=== PATIENT | female | born 1965 | race Hispanic/Latino ===

== ENCOUNTER 2021-02-25 19:30 | Inpatient (IN) | payer OTHER ==
[~2021-02-25] VITALS: Ht 157.5 cm; Wt 70.3 kg
[2021-02-25] MEDS ORDERED: IBUPROFEN 600 MG TAB PO STA (20:08)
[2021-02-25] MEDS ORDERED: DEXAMETHASONE SOD PHOS INJ 4 MG/ML SDV IV ONE (20:30)
[2021-02-25] MEDS ORDERED: SODIUM CHLORIDE 0.9% 1000ML 1,000 ML IV SCH (20:30)
[2021-02-25] MEDS ORDERED: DEXAMETHASONE SOD PHOS INJ 4 MG/ML SDV ONE (20:34)
[2021-02-25] MEDS ORDERED: SODIUM CHLORIDE 0.9% 50ML 50 ML ONE (20:34)
[2021-02-25] MEDS ORDERED: SODIUM CHLORIDE 0.9% 250ML 250 ML ONE (20:34)
[2021-02-25] MEDS: CEFTRIAXONE 1 GM in SODIUM CHLORIDE 0.9% 50ML 50 ML IV SCH (20:34)
[2021-02-25] MEDS ORDERED: SODIUM CHLORIDE 0.9% 1000ML 1,000 ML ONE (20:34)
[2021-02-25] MEDS ORDERED: CEFTRIAXONE 1 GM VIAL ONE (20:35)
[2021-02-25 20:50] LABS: BASOPHILS % 0.2 % (0.0-1.0); HEMATOCRIT 44.6 % (34.2-44.1); HEMOGLOBIN 15.3 g/dL (12.0-16.0); LYMPHOCYTES # (AUTO) 1.3 (1.0-3.2); LYMPHOCYTES % 20.4 % (18.0-39.1); MEAN CORPUSCULAR HEMOGLOBIN 31.8 pg (28-32); MEAN CORPUSCULAR HGB CONC 34.3 g/dL (31-35); MEAN CORPUSCULAR VOLUME 92.7 fL (81-99); MONOCYTES # (AUTO) 0.4 (0.2-0.8); MONOCYTES % 6.2 % (4.4-11.3); NEUTROPHILS # (AUTO) 4.7 (2.1-6.9); NEUTROPHILS % 72.6 % (38.7-80.0); PLATELET COUNT 192 x10e3/uL (140-360); RED BLOOD COUNT 4.81 x10e6/uL (3.6-5.1); RED CELL DISTRIBUTION WIDTH 13.2 % (11.7-14.4)
[2021-02-25 21:04] LABS: ANION GAP 15.6 mmol/L (8-16); CALCIUM 8.7 mg/dL (8.4-10.2); CREATININE, SERUM 0.73 mg/dL (0.57-1.11); POTASSIUM 3.6 mmol/L (3.5-5.1)
[2021-02-25 21:10] LABS: CREATINE KINASE MB 0.8 ng/mL (0-5.0)
[2021-02-25 21:23] LABS: ALBUMIN 3.3 g/dL (3.5-5.0); BILIRUBIN,DIRECT 0.5 mg/dL (0.0-0.5)
[2021-02-25] MEDS ORDERED: ACETAMINOPHEN 325 MG TAB PO PRN (22:00)
[2021-02-25] MEDS: SODIUM CHLORIDE 0.9% 1000ML 1,000 ML IV SCH (23:45)
[2021-02-26] VITALS (8 sets, daily range): BP systolic 94–112; BP diastolic 70–80
[2021-02-26] MEDS ORDERED: LEVOTHYROXINE50 MCG PO (00:01)
[2021-02-26] MEDS: LEVOTHYROXINE SODIUM 50 MCG TAB PO SCH (05:55)
[2021-02-26 07:19] LABS: BASOPHILS % 0.3 % (0.0-1.0); HEMATOCRIT 39.3 % (34.2-44.1); HEMOGLOBIN 13.4 g/dL (12.0-16.0); LYMPHOCYTES # (AUTO) 0.9 (1.0-3.2); LYMPHOCYTES % 22.4 % (18.0-39.1); MEAN CORPUSCULAR HGB CONC 34.1 g/dL (31-35); MEAN CORPUSCULAR VOLUME 93.8 fL (81-99); MONOCYTES # (AUTO) 0.2 (0.2-0.8); MONOCYTES % 4.6 % (4.4-11.3); NEUTROPHILS # (AUTO) 2.8 (2.1-6.9); NEUTROPHILS % 71.4 % (38.7-80.0); PLATELET COUNT 189 x10e3/uL (140-360); RED BLOOD COUNT 4.19 x10e6/uL (3.6-5.1); RED CELL DISTRIBUTION WIDTH 13.3 % (11.7-14.4)
[2021-02-26 07:42] LABS: CALCIUM 8.3 mg/dL (8.4-10.2); CREATININE, SERUM 0.7 mg/dL (0.57-1.11)
[2021-02-26 08:12] LABS: CREATINE KINASE MB 0.6 ng/mL (0-5.0)
[2021-02-26] MEDS: CEFTRIAXONE 1 GM in SODIUM CHLORIDE 0.9% 50ML 50 ML IV SCH (08:29)
[2021-02-26] MEDS: DEXAMETHASONE SOD PHOS INJ 4 MG/ML SDV IV SCH (08:29)
[2021-02-26 08:44] LABS: BAND NEUTROPHILS % (MANUAL) 1 %; LYMPHOCYTES % (MANUAL) 15 % (19-48); MONOCYTES % (MANUAL) 6 % (3.4-9.0); MYELOCYTES % (MANUAL) 1 % (0-0); NEUTROPHILS % (MANUAL) 77 % (40-74); PLATELET ESTIMATE ADEQUATE
[2021-02-26 08:45] LABS: PLATELET MORPHOLOGY COMMENT NORMAL; RBC MORPHOLOGY COMMENT NORMAL
[2021-02-26] MEDS ORDERED: REMDESIVIR 200MG 200 MG in SODIUM CHLORIDE 0.9% 100 ML IV ONE (11:00)
[2021-02-26] MEDS: ASCORBIC ACID 500 MG TAB PO SCH ×2 (12:21→16:29)
[2021-02-26] MEDS: ZINC SULFATE 50 MG CAP PO SCH (12:21)
[2021-02-26] MEDS: ENOXAPARIN 30 MG/0.3 ML SYR SC SCH ×2 (12:21→16:29)
[2021-02-26] MEDS: SODIUM CHLORIDE 0.9% 1000ML 1,000 ML IV SCH (12:21)
[2021-02-26 16:56] LABS: CREATINE KINASE MB 0.8 ng/mL (0-5.0)
[2021-02-27] MEDS: SODIUM CHLORIDE 0.9% 1000ML 1,000 ML IV SCH ×2 (00:15→13:12)
[2021-02-27 01:01] VITALS: BP 103/70
[2021-02-27] MEDS: LEVOTHYROXINE SODIUM 50 MCG TAB PO SCH (06:00)
[2021-02-27 06:04] VITALS: BP 94/63
[2021-02-27 06:24] LABS: BASOPHILS % 0.1 % (0.0-1.0); HEMATOCRIT 37.5 % (34.2-44.1); HEMOGLOBIN 12.9 g/dL (12.0-16.0); LYMPHOCYTES # (AUTO) 1.3 (1.0-3.2); LYMPHOCYTES % 14.5 % (18.0-39.1); MEAN CORPUSCULAR HEMOGLOBIN 31.9 pg (28-32); MEAN CORPUSCULAR HGB CONC 34.4 g/dL (31-35); MEAN CORPUSCULAR VOLUME 92.6 fL (81-99); MONOCYTES # (AUTO) 0.6 (0.2-0.8); MONOCYTES % 6.8 % (4.4-11.3); NEUTROPHILS # (AUTO) 6.9 (2.1-6.9); NEUTROPHILS % 77.1 % (38.7-80.0); PLATELET COUNT 222 x10e3/uL (140-360); RED BLOOD COUNT 4.05 x10e6/uL (3.6-5.1)
[2021-02-27 06:43] LABS: ALBUMIN 2.8 g/dL (3.5-5.0); ALBUMIN/GLOBULIN RATIO 0.9 (0.8-2.0); ANION GAP 11.3 mmol/L (8-16); CALCIUM 7.7 mg/dL (8.4-10.2); CREATININE, SERUM 0.64 mg/dL (0.57-1.11); POTASSIUM 3.3 mmol/L (3.5-5.1)
[2021-02-27 08:02] VITALS: BP 97/70
[2021-02-27 08:21] LABS: LYMPHOCYTES % (MANUAL) 21 % (19-48); METAMYELOCYTES % (MANUAL) 1 % (0-0); MONOCYTES % (MANUAL) 2 % (3.4-9.0); NEUTROPHILS % (MANUAL) 76 % (40-74); PLATELET ESTIMATE ADEQUATE; PLATELET MORPHOLOGY COMMENT NORMAL; RBC MORPHOLOGY COMMENT NORMAL
[2021-02-27] MEDS: CEFTRIAXONE 1 GM in SODIUM CHLORIDE 0.9% 50ML 50 ML IV SCH (09:08)
[2021-02-27] MEDS: ASCORBIC ACID 500 MG TAB PO SCH ×2 (09:08→16:38)
[2021-02-27] MEDS: ENOXAPARIN 30 MG/0.3 ML SYR SC SCH ×2 (09:08→16:38)
[2021-02-27] MEDS: ZINC SULFATE 50 MG CAP PO SCH (09:08)
[2021-02-27] MEDS: DEXAMETHASONE SOD PHOS INJ 4 MG/ML SDV IV SCH (09:08)
[2021-02-27] MEDS ORDERED: POTASSIUM CHLORIDE 20 MEQ TAB CR PO PRN (10:30)
[2021-02-27] MEDS: REMDESIVIR 100MG 100 MG in SODIUM CHLORIDE 0.9% 100 ML IV SCH (13:12)
[2021-02-27 20:44] VITALS: BP 104/64
[2021-02-27 21:15] VITALS: BP 104/64
[2021-02-28] VITALS (7 sets, daily range): BP systolic 101–132; BP diastolic 62–78
[2021-02-28] MEDS: SODIUM CHLORIDE 0.9% 1000ML 1,000 ML IV SCH ×2 (03:14→16:00)
[2021-02-28] MEDS: LEVOTHYROXINE SODIUM 75 MCG TAB PO SCH (06:05)
[2021-02-28 07:03] LABS: BASOPHILS % 0.1 % (0.0-1.0); HEMATOCRIT 41.8 % (34.2-44.1); HEMOGLOBIN 14.3 g/dL (12.0-16.0); LYMPHOCYTES # (AUTO) 1.9 (1.0-3.2); LYMPHOCYTES % 22.8 % (18.0-39.1); MEAN CORPUSCULAR HEMOGLOBIN 31.8 pg (28-32); MEAN CORPUSCULAR HGB CONC 34.2 g/dL (31-35); MEAN CORPUSCULAR VOLUME 93.1 fL (81-99); MONOCYTES # (AUTO) 0.6 (0.2-0.8); MONOCYTES % 7.7 % (4.4-11.3); NEUTROPHILS # (AUTO) 5.6 (2.1-6.9); NEUTROPHILS % 67.6 % (38.7-80.0); PLATELET COUNT 280 x10e3/uL (140-360); RED BLOOD COUNT 4.49 x10e6/uL (3.6-5.1)
[2021-02-28] MEDS: CEFTRIAXONE 1 GM in SODIUM CHLORIDE 0.9% 50ML 50 ML IV SCH (08:46)
[2021-02-28] MEDS: DEXAMETHASONE SOD PHOS INJ 4 MG/ML SDV IV SCH (08:46)
[2021-02-28] MEDS: ENOXAPARIN 30 MG/0.3 ML SYR SC SCH ×2 (08:46→16:32)
[2021-02-28] MEDS: ZINC SULFATE 50 MG CAP PO SCH (08:46)
[2021-02-28] MEDS: ASCORBIC ACID 500 MG TAB PO SCH ×2 (08:46→16:32)
[2021-02-28] MEDS: REMDESIVIR 100MG 100 MG in SODIUM CHLORIDE 0.9% 100 ML IV SCH (14:00)
[2021-03-01] VITALS (7 sets, daily range): BP systolic 92–118; BP diastolic 58–92
[2021-03-01] MEDS: SODIUM CHLORIDE 0.9% 1000ML 1,000 ML IV SCH ×2 (05:15→17:03)
[2021-03-01] MEDS: LEVOTHYROXINE SODIUM 75 MCG TAB PO SCH (06:35)
[2021-03-01 08:43] LABS: BASOPHILS % 0.1 % (0.0-1.0); EOSINOPHILS % 0.1 % (0.0-6.0); HEMATOCRIT 40.7 % (34.2-44.1); HEMOGLOBIN 14.1 g/dL (12.0-16.0); LYMPHOCYTES % 21.8 % (18.0-39.1); MEAN CORPUSCULAR HGB CONC 34.6 g/dL (31-35); MEAN CORPUSCULAR VOLUME 92.5 fL (81-99); MONOCYTES # (AUTO) 0.8 (0.2-0.8); NEUTROPHILS # (AUTO) 6.3 (2.1-6.9); PLATELET COUNT 296 x10e3/uL (140-360); RED CELL DISTRIBUTION WIDTH 12.6 % (11.7-14.4)
[2021-03-01] MEDS: ZINC SULFATE 50 MG CAP PO SCH (09:00)
[2021-03-01] MEDS: ASCORBIC ACID 500 MG TAB PO SCH ×2 (09:00→17:02)
[2021-03-01] MEDS: ENOXAPARIN 30 MG/0.3 ML SYR SC SCH ×2 (09:00→17:02)
[2021-03-01] MEDS: DEXAMETHASONE SOD PHOS INJ 4 MG/ML SDV IV SCH (09:00)
[2021-03-01] MEDS: CEFTRIAXONE 1 GM in SODIUM CHLORIDE 0.9% 50ML 50 ML IV SCH (09:00)
[2021-03-01 11:51] LABS: LYMPHOCYTES % (MANUAL) 23 % (19-48); MONOCYTES % (MANUAL) 4 % (3.4-9.0); NEUTROPHILS % (MANUAL) 73 % (40-74); PLATELET ESTIMATE ADEQUATE; PLATELET MORPHOLOGY COMMENT FEW LARGE
[2021-03-01 11:52] LABS: RBC MORPHOLOGY COMMENT NORMAL
[2021-03-01] MEDS: REMDESIVIR 100MG 100 MG in SODIUM CHLORIDE 0.9% 100 ML IV SCH (13:04)
[2021-03-02] VITALS (7 sets, daily range): BP systolic 98–117; BP diastolic 67–78
[2021-03-02] MEDS: LEVOTHYROXINE SODIUM 75 MCG TAB PO SCH (05:17)
[2021-03-02] MEDS: SODIUM CHLORIDE 0.9% 1000ML 1,000 ML IV SCH ×2 (05:31→21:15)
[2021-03-02 07:25] LABS: BASOPHILS % 0.3 % (0.0-1.0); EOSINOPHILS % 0.3 % (0.0-6.0); HEMATOCRIT 37.3 % (34.2-44.1); HEMOGLOBIN 13.1 g/dL (12.0-16.0); LYMPHOCYTES # (AUTO) 1.9 (1.0-3.2); LYMPHOCYTES % 26.6 % (18.0-39.1); MEAN CORPUSCULAR HEMOGLOBIN 32.3 pg (28-32); MEAN CORPUSCULAR HGB CONC 35.1 g/dL (31-35); MEAN CORPUSCULAR VOLUME 91.9 fL (81-99); MONOCYTES # (AUTO) 0.7 (0.2-0.8); NEUTROPHILS # (AUTO) 4.4 (2.1-6.9); NEUTROPHILS % 59.6 % (38.7-80.0); PLATELET COUNT 314 x10e3/uL (140-360); RED BLOOD COUNT 4.06 x10e6/uL (3.6-5.1); RED CELL DISTRIBUTION WIDTH 12.5 % (11.7-14.4)
[2021-03-02] MEDS: ASCORBIC ACID 500 MG TAB PO SCH ×2 (08:13→16:16)
[2021-03-02] MEDS: ZINC SULFATE 50 MG CAP PO SCH (08:13)
[2021-03-02] MEDS: DEXAMETHASONE SOD PHOS INJ 4 MG/ML SDV IV SCH (08:13)
[2021-03-02] MEDS: ENOXAPARIN 30 MG/0.3 ML SYR SC SCH ×2 (08:13→16:16)
[2021-03-02] MEDS: REMDESIVIR 100MG 100 MG in SODIUM CHLORIDE 0.9% 100 ML IV SCH (15:41)
[2021-03-03] VITALS: BP 92/67
[2021-03-03 04:45] VITALS: BP 97/70
[2021-03-03] MEDS: LEVOTHYROXINE SODIUM 75 MCG TAB PO SCH (05:55)
[2021-03-03] MEDS: SODIUM CHLORIDE 0.9% 1000ML 1,000 ML IV SCH (05:56)
[2021-03-03 06:13] LABS: BASOPHILS % 0.4 % (0.0-1.0); EOSINOPHILS % 0.1 % (0.0-6.0); HEMATOCRIT 39.5 % (34.2-44.1); HEMOGLOBIN 13.7 g/dL (12.0-16.0); LYMPHOCYTES # (AUTO) 2.1 (1.0-3.2); LYMPHOCYTES % 24.6 % (18.0-39.1); MEAN CORPUSCULAR HEMOGLOBIN 31.9 pg (28-32); MEAN CORPUSCULAR HGB CONC 34.7 g/dL (31-35); MEAN CORPUSCULAR VOLUME 92.1 fL (81-99); MONOCYTES # (AUTO) 0.8 (0.2-0.8); NEUTROPHILS # (AUTO) 5.1 (2.1-6.9); NEUTROPHILS % 60.6 % (38.7-80.0); PLATELET COUNT 361 x10e3/uL (140-360); RED BLOOD COUNT 4.29 x10e6/uL (3.6-5.1); RED CELL DISTRIBUTION WIDTH 12.5 % (11.7-14.4)
[2021-03-03 06:43] LABS: ANION GAP 13.1 mmol/L (8-16); CALCIUM 8.3 mg/dL (8.4-10.2); CREATININE, SERUM 0.69 mg/dL (0.57-1.11); POTASSIUM 3.1 mmol/L (3.5-5.1)
[2021-03-03 07:44] VITALS: BP 113/77
[2021-03-03 08:38] VITALS: BP 113/77
[2021-03-03] MEDS: ASCORBIC ACID 500 MG TAB PO SCH (08:51)
[2021-03-03] MEDS: ZINC SULFATE 50 MG CAP PO SCH (08:51)
[2021-03-03] MEDS: DEXAMETHASONE SOD PHOS INJ 4 MG/ML SDV IV SCH (08:51)
[2021-03-03] MEDS: ENOXAPARIN 30 MG/0.3 ML SYR SC SCH (08:51)
[2021-03-03] MEDS ORDERED: POTASSIUM CHLORIDE 20 MEQ TAB CR PO ONE (09:15)
[2021-03-03 10:58] LABS: LYMPHOCYTES % (MANUAL) 17 % (19-48); MONOCYTES % (MANUAL) 13 % (3.4-9.0); NEUTROPHILS % (MANUAL) 66 % (40-74); NUCLEATED RED BLOOD CELLS 2; PLATELET ESTIMATE ADEQUATE; PLATELET MORPHOLOGY COMMENT NORMAL; RBC MORPHOLOGY COMMENT NORMAL
== END 2021-03-03 10:18 | disposition home or self-care (01) | DRG 177 ==
LOC: FSED 19:45 → ERHOLD 21:14 → MED/SURG3 22:43
PROVIDERS: ADMIT Internal Medicine; ATTEND Internal Medicine
DX: U07.1 COVID-19 (principal); J12.82 Pneumonia due to coronavirus disease 2019; J96.01 Acute respiratory failure with hypoxia; J15.9 Unspecified bacterial pneumonia; E03.9 Hypothyroidism, unspecified; D72.819 Decreased white blood cell count, unspecified; R53.81 Other malaise; Z82.49 Family history of ischemic heart disease and other diseases of the circulatory system
CPT/HCPCS: 36415; 71045; 71046; 80048; 80053; 80076; 82550; 82553; 83605; 83735; 83880; 84443; 84484; 85025; 85379; 87040; 87070; 87205; 94799; 96360; 99284; J0456; J0696; J1100; J1650; J7030; J7050; U0002